=== PATIENT | female | born 1970 | race Caucasian/White ===

== ENCOUNTER 2021-03-19 10:02 | Emergency (ER) | payer BC, SELFPAY ==
--- NOTE | ~2021-03-19 | XR_ITS ---
EXAMINATION: XR finger 3rd LT min 2V DATE: 03/19/2021 10:31 INDICATION: Left hand third digit injury and pain. TECHNIQUE: 4 views of left hand third digit were obtained. COMPARISON: None. FINDINGS: Bone alignment is normal. No fracture. There are marginal erosions of head of third middle phalanx. There is a tiny osteophyte of the base of third distal phalanx. No significant joint space n arrowing. There is soft tissue swelling at the proximal and distal interphalangeal joints. IMPRESSION: 1. 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 Reviewed, dictated and finalized at location A. IMPRESSION: 1. Mild arthritis of third distal interphalangeal joint, which may be inflammat ory or septic arthritis or osteoarthritis.
[2021-03-19 10:16] VITALS: BP 128/76; PULSE 95; RESP 18; TEMP 36.9; O2SAT 100
--- NOTE | 2021-03-19 10:16 | ED.GENADULT ---
HPI - General Adult General Chief complaint: Extremity Injury, Upper Stated complaint: Pain middle finger Lt hand Time Seen by Provider: 03/19/21 10:16 Source: patient, RN notes reviewed and old records reviewed Mode of arrival: ambulatory Limitations: no limitations History of Present Illness HPI narrative: 50 year old female presents to [facility] care with complaints of pain to the middle finger of her left hand after a window fell onto her finger 2 months ago while trying to place a screen into the window. Patient states that she had 2 cuts on her finger when it occurred but they healed within 14 days after injury. Patient states that she has discomfort to distal and proximal joint areas of her 3rd left finger with swelling noted to proximal joint and inability to straighten joint with noted bent position. Patient reports that she is able to type and and write but is unable to play her musical instrument due to bend of finger at proximal joint area and pain. Patient denies any tingling or numbness to her left third finger or hand with strong left radial pulse. Patient is left hand dominant. 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 MD complaint: pain, swelling, limited mobility left middle finger Onset (ago): month(s) (2) Location: left and upper extremity (left middle finger) Severity: mild Severity scale (1-10): 2 Quality: aching Exacerbating factors: movement Treatments prior to arrival: other (herbal remedy) Related Data Home Medications Medication Instructions Recorded Confirmed No Home Medications 03/19/21 03/19/21 Allergies Allergy/AdvReac Type Severity Reaction Status Date / Time No Known Allergies Allergy Verified 03/19/21 10:21 Review of Systems Review of Systems: CONSTITUTIONAL: Denies fever, chills, or sweats. EYES: Denies visual changes, redness, or discharge. ENT: Denies rhinorrhea, congestion, sore throat, or otalgia. CARDIOVASCULAR: Denies chest pain, palpitations, or edema. RESPIRATORY: Denies cough or dyspnea. GASTROINTESTINAL: Denies abdominal pain, nausea, vomiting, or diarrhea. GENITOURINARY: Denies dysuria or hematuria. SKIN: Denies rash or itching. MUSCULOSKELETAL: Denies back pain,positive left middle finger joint pain, or myalgia. NEUROLOGIC: Denies headache, numbness, or weakness. PSYCHIATRIC: Denies anxiety or depression. All systems reviewed & are unremarkable except as noted in HPI and below PMFSH Past Medical History Medical History (Updated 03/19/21 @ 10:56 by Lay Miguel NP) Spontaneous pneumothorax Surgical History Surgical History (Updated 03/19/21 @ 11:17 by Lay Miguel NP) History of lung surgery right lung talc and sina on left lung to prevent spontaneous pneumothorax done at age 21 Family History Family History (Updated 03/19/21 @ 11:16 by Lay Miguel NP) Father Heart disease Hypertension Hyperlipidemia Mother Hypertension Hyperlipidemia Grandparent Malignant neoplasm of prostate Cerebrovascular accident Social History Social History (Updated 03/19/21 @ 11:14 by Lay Miguel NP) Smoking status: Former smoker Additional smoking assessment comments: quit 20 years ago Alcohol intake: former Substance use: never Living arrangements: with family Gender identity (if verbalized by the patient): Female Comments At time of signature, agree with nursing past medical, surgical, social and family history. There is no relevant family history pertinent to the presenting complaint Exam Narrative: GENERAL: Well-appearing, well-nourished, and in no acute distress. HEAD: Normocephalic, atraumatic. EYES: PERRLA and EOMI. ENT: Nares clear, no rhinorrhea or epistaxis. Mucous membranes moist. NECK: Supple.no lymphadenopathy CHEST: Clear to auscultation. No respiratory distress.SAO2 100% on room air HEART: Regular rate and rhythm. No murmur heard. Normal peripheral pulses. ABDOMEN: Soft, nontender, non
== END 2021-03-19 11:09 | disposition home or self-care (01) ==
PROVIDERS: Emergency Provider Registered Nurse
DX: M19.142 Post-traumatic osteoarthritis, left hand (principal); T14.90XS Injury, unspecified, sequela; X58.XXXS Exposure to other specified factors, sequela; Z87.891 Personal history of nicotine dependence
CPT/HCPCS: 73140; 99213; G0463